=== PATIENT | male | born 1940 | race Asian ===

== ENCOUNTER 2016-10-28 08:56 | Day surgery (SDC) | payer OTHER, BC ==
[~2016-10-28 08:56] MED LIST: ADULT LOW DOSE81 M1 PO; ADVAIR 500-501 EACH IH; ADVAIR 500/501 DISK IH; ALBUTEROL SULF8.5 GM IH; ASPIR-LOW81 MG PO; AVODART0.5 MG PO; BROVANA15 MCG/2 M IH; BUDESONIDE0.25 MG/2 IH; CARDIZEM CD120 M1 PO; COUMADIN,JANTO2.5 MG PO; COUMADIN2.5 MG PO; ECOTRIN325 MG PO; EFFIENT10 MG PO; EMS NITROSTAT0.4 MG PO; FLOMAX0.4 MG PO; JANUVIA100 MG PO; K-DUR20 MEQ PO; K-LOR20 MEQ PO; LANOXIN,DIGIT0.25 MG PO; LASIX40 MG PO; LISINOPRIL10 MG PO; NEXIUM40 MG PO; NITROGLYCERIN0.4 MG SL; OXYCODONE HCL5 MG PO; SPIRIVA1 INHALATI IH; SYMBICORT60 INHALAT IH; THEO-24200 MG PO; TOPROL XL100 MG PO; UROXATRAL10 MG PO; VENTOLIN17 GM IH; ZESTRIL,PRINIVI10 M1 PO; ZESTRIL,PRINIVI20 MG PO; ZETIA10 MG PO
[2016-10-28 09:36] LABS: POINT-OF-CARE METER ID UU13113696
== END 2016-10-28 11:20 | disposition home or self-care (01) ==
LOC: CATH 08:56
PROVIDERS: Internal Medicine Cardiovascular Disease
PROC: 5A2204Z Restoration of Cardiac Rhythm, Single (ICD-10-PCS; principal; 2016-10-28)
DX: I48.0 Paroxysmal atrial fibrillation (principal); E11.9 Type 2 diabetes mellitus without complications; I10 Essential (primary) hypertension; J44.9 Chronic obstructive pulmonary disease, unspecified; J45.909 Unspecified asthma, uncomplicated
CPT/HCPCS: 82948; 93005; J3010